=== PATIENT | female | born 2000 | race Caucasian/White ===

== ENCOUNTER 2018-02-14 16:01 | Emergency (ER) | payer SELFPAY | END 2018-02-14 18:46 | disposition left against medical advice (07) | LOC: M ED 16:01 | DX: R25.2 Cramp and spasm (principal); Z53.21 Procedure and treatment not carried out due to patient leaving prior to being seen by health care provider ==

== ENCOUNTER 2018-08-19 21:52 | Emergency (ER) | payer OTHER, SELFPAY ==
[2018-08-19 22:42] LABS: KETONE, URINE AUTO RFX NEGATIVE (NEGATIVE); LEUKOCYTE ESTERASE UR AUTO RFX NEGATIVE (NEGATIVE); MUCUS, URINE RFX SMALL (NEGATIVE); RBC, URINE AUTO RFX 2 /HPF (0-3); SPECIFIC GRAVITY UR AUTO RFX 1.023 (1.002-1.035); SQUAM EPITHELIAL CELL UR AURFX 2 /HPF (0-6); WBC, URINE AUTO RFX 4 /HPF (0-3)
[2018-08-19 23:02] LABS: NITRITE, URINE AUTO RFX POSITIVE (NEGATIVE)
[2018-08-19 23:22] LABS: BASO % 0.3 % (0.0-1.0); EOS # 0.1 10^3/uL (0.0-0.50); EOS % 0.8 % (0.0-3.0); HEMATOCRIT 35.5 % (36.0-47.0); HEMOGLOBIN 11.6 g/dl (12.0-15.5); IMMATURE GRANULOCYTE % 0.4 % (0-3.0); LYMPH # 2.1 10^3/uL (1.5-6.5); LYMPH % 26.3 % (24.0-44.0); MEAN CORPUSCULAR HEMOGLOBIN 27.6 pg (27.0-33.0); MEAN CORPUSCULAR HGB CONC 32.7 g/dl (32.0-36.5); MEAN CORPUSCULAR VOLUME 84.5 fl (80.0-96.0); MONO # 0.4 10^3/uL (0.0-0.8); MONO % 5.1 % (0.0-5.0); NEUTROPHILS # 5.4 10^3/uL (1.8-7.7); NEUTROPHILS % 67.1 % (36.0-66.0); PLATELET COUNT, AUTOMATED 251 10^3/uL (150-450); RED CELL DISTRIBUTION WIDTH 14.1 % (11.5-14.5)
[2018-08-19 23:38] LABS: ANION GAP 8 MEQ/L (8-16); BLOOD UREA NITROGEN 15 MG/DL (7-18); CARBON DIOXIDE LEVEL 23 MEQ/L (21-32); CHLORIDE LEVEL 113 MEQ/L (98-107); GLUCOSE, FASTING 85 MG/DL (70-100); POTASSIUM SERUM 4.2 MEQ/L (3.5-5.1); SODIUM LEVEL 144 MEQ/L (136-145)
[2018-08-19] MEDS: cefTRIAXone SOD 1 GM in D5W MINI-BAG PLUS 50 ML IV (23:49)
[2018-08-19] MEDS: NS 1,000 ML IV (23:49)
[2018-08-19] MEDS: ACETAMINOPHEN 325 MG TAB PO (23:50)
[2018-08-19 23:58] LABS: HCG, SERUM QUANTITATIVE 13651 MIU/ML
[2018-08-20] MEDS: diphenhydrAMINE 25 MG CAP PO (01:20)
== END 2018-08-20 01:37 | disposition home or self-care (01) ==
LOC: M ED 08-20 01:37
DX: O23.41 Unspecified infection of urinary tract in pregnancy, first trimester (principal); Z3A.01 Less than 8 weeks gestation of pregnancy
CPT/HCPCS: J0696

== ENCOUNTER 2018-09-26 10:09 | Inpatient (IN) | payer OTHER ==
[2018-09-26 11:38] LABS: HEMATOCRIT 36.3 % (36.0-47.0); HEMOGLOBIN 12.4 g/dl (12.0-15.5); MEAN CORPUSCULAR HEMOGLOBIN 27.5 pg (27.0-33.0); MEAN CORPUSCULAR HGB CONC 34.2 g/dl (32.0-36.5); MEAN CORPUSCULAR VOLUME 80.5 fl (80.0-96.0); PLATELET COUNT, AUTOMATED 224 10^3/uL (150-450); RED BLOOD COUNT 4.51 10^6/uL (4.00-5.40); WHITE BLOOD COUNT 6.9 10^3/uL (4.0-10.0)
[2018-09-26 11:55] LABS: AMPHETAMINES LEVEL URINE NEGATIVE (NEGATIVE); BARBITURATES URINE NEGATIVE (NEGATIVE); BENZODIAZEPINES URINE NEGATIVE (NEGATIVE); CANNABINOIDS URINE NEGATIVE (NEGATIVE); COCAINE METABOLITE URINE NEGATIVE (NEGATIVE); METHADONE URINE NEGATIVE (NEGATIVE); OPIATES URINE NEGATIVE (NEGATIVE); PHENCYCLIDINE URINE NEGATIVE (NEGATIVE)
[2018-09-26 12:15] LABS: ACETAMINOPHEN LEVEL < 2.0 UG/ML (10.0-30.0); ALBUMIN 3.5 GM/DL (3.2-5.2); ALBUMIN/GLOBULIN RATIO 1.09 (1.00-1.93); ALKALINE PHOSPHATASE 74 U/L (45-117); ALT/SGPT 11 U/L (12-78); ANION GAP 7 MEQ/L (8-16); AST/SGOT 11 U/L (7-37); BILIRUBIN,DIRECT < 0.1 MG/DL (0.0-0.2); BILIRUBIN,TOTAL 0.3 MG/DL (0.2-1.0); BLOOD UREA NITROGEN 7 MG/DL (7-18); CALCIUM LEVEL 8.9 MG/DL (8.5-10.1); CARBON DIOXIDE LEVEL 24 MEQ/L (21-32); CHLORIDE LEVEL 106 MEQ/L (98-107); ETHYL ALCOHOL (ETHANOL) < 0.003 % (0.000-0.010); GLUCOSE, FASTING 77 MG/DL (70-100); POTASSIUM SERUM 4.3 MEQ/L (3.5-5.1); SALICYLATE LEVEL < 1.7 MG/DL (5.0-30.0); SODIUM LEVEL 137 MEQ/L (136-145); TOTAL PROTEIN 6.7 GM/DL (6.4-8.2)
[2018-09-26 12:23] LABS: CONTROL LINE HCG INT CTR LINE PRESENT; HCG, SERUM QUALITATIVE POSITIVE (NEGATIVE)
[2018-09-26] MEDS ORDERED: MAALOX 30 ML SUSP *UDC PO (15:00)
[2018-09-26] MEDS ORDERED: MOM 30ML SUSPENSION UDC PO (15:00)
[2018-09-26] MEDS ORDERED: ACETAMINOPHEN TAB 650MG DOSE (2X325MG) PO (15:00)
[2018-09-27] MEDS: PRENATAL VITAMINS CHEWABLE TABLET PO (11:36)
[2018-09-27] MEDS: DOCUSATE SODIUM 100 MG CAP PO ×2 (11:36→21:46)
[2018-09-27] MEDS: ESCITALOPRAM OXALATE 10 MG TAB (LEXAPRO) PO (13:26)
[2018-09-27 14:40] LABS: KETONE, URINE AUTO RFX TRACE mg/dL (NEGATIVE); MUCUS, URINE RFX SMALL (NEGATIVE); NITRITE, URINE AUTO RFX NEGATIVE (NEGATIVE); RBC, URINE AUTO RFX 1 /HPF (0-3); SPECIFIC GRAVITY UR AUTO RFX 1.023 (1.002-1.035); SQUAM EPITHELIAL CELL UR AURFX 21 /HPF (0-6); WBC, URINE AUTO RFX 5 /HPF (0-3)
[2018-09-27 15:17] LABS: LEUKOCYTE ESTERASE UR AUTO RFX 2+ (NEGATIVE)
[2018-09-28] MEDS: DOCUSATE SODIUM 100 MG CAP PO ×2 (09:25→21:15)
[2018-09-28] MEDS: PRENATAL VITAMINS CHEWABLE TABLET PO (09:25)
[2018-09-28] MEDS: ESCITALOPRAM OXALATE 10 MG TAB (LEXAPRO) PO (09:25)
[2018-09-29] MEDS: PRENATAL VITAMINS CHEWABLE TABLET PO (08:43)
[2018-09-29] MEDS: DOCUSATE SODIUM 100 MG CAP PO ×2 (08:43→21:39)
[2018-09-29] MEDS: ESCITALOPRAM OXALATE 10 MG TAB (LEXAPRO) PO (08:43)
[2018-09-29] MEDS: NITROFURANTOIN (MACROBID) 100 MG CAP PO ×2 (09:32→21:39)
[2018-09-30] MEDS: PRENATAL VITAMINS CHEWABLE TABLET PO (13:58)
[2018-09-30] MEDS: NITROFURANTOIN (MACROBID) 100 MG CAP PO ×2 (13:58→22:42)
[2018-09-30] MEDS: DOCUSATE SODIUM 100 MG CAP PO ×2 (13:58→22:41)
[2018-09-30] MEDS: ESCITALOPRAM OXALATE 10 MG TAB (LEXAPRO) PO (13:58)
[2018-09-30] MEDS: METOCLOPRAMIDE 10 MG TAB PO (22:41)
[2018-10-01] MEDS: ESCITALOPRAM OXALATE 10 MG TAB (LEXAPRO) PO (09:58)
[2018-10-01] MEDS: DOCUSATE SODIUM 100 MG CAP PO ×2 (09:58→22:00)
[2018-10-01] MEDS: NITROFURANTOIN (MACROBID) 100 MG CAP PO ×2 (09:58→22:00)
[2018-10-01] MEDS: PRENATAL VITAMINS CHEWABLE TABLET PO (09:58)
[2018-10-02] MEDS: DOCUSATE SODIUM 100 MG CAP PO (09:19)
[2018-10-02] MEDS: ESCITALOPRAM OXALATE 10 MG TAB (LEXAPRO) PO (09:19)
[2018-10-02] MEDS: PRENATAL VITAMINS CHEWABLE TABLET PO (09:19)
[2018-10-02] MEDS: NITROFURANTOIN (MACROBID) 100 MG CAP PO (10:45)
== END 2018-10-02 13:15 | disposition home or self-care (01) | DRG 832 ==
LOC: M ED 10:09 → M ED INP 14:54 → M PSY 17:23
DX: O99.341 Other mental disorders complicating pregnancy, first trimester (principal); R45.851 Suicidal ideations; F33.9 Major depressive disorder, recurrent, unspecified; F43.10 Post-traumatic stress disorder, unspecified; Z59.8 Other problems related to housing and economic circumstances; Z62.810 Personal history of physical and sexual abuse in childhood; Z88.0 Allergy status to penicillin; Z88.8 Allergy status to other drugs, medicaments and biological substances; Z79.899 Other long term (current) drug therapy; K59.00 Constipation, unspecified; Z3A.11 11 weeks gestation of pregnancy

== ENCOUNTER 2018-10-10 17:01 | Emergency (ER) | payer OTHER ==
[2018-10-10] MEDS: NS 1,000 ML IV (17:30)
[2018-10-10 17:41] LABS: BASO % 0.2 % (0.0-1.0); EOS % 0.5 % (0.0-3.0); HEMATOCRIT 37.2 % (36.0-47.0); HEMOGLOBIN 12.7 g/dl (12.0-15.5); IMMATURE GRANULOCYTE % 0.4 % (0-3.0); LYMPH # 1.4 10^3/uL (1.5-6.5); LYMPH % 16.9 % (24.0-44.0); MEAN CORPUSCULAR HEMOGLOBIN 27.7 pg (27.0-33.0); MEAN CORPUSCULAR HGB CONC 34.1 g/dl (32.0-36.5); MEAN CORPUSCULAR VOLUME 81.2 fl (80.0-96.0); MONO # 0.3 10^3/uL (0.0-0.8); MONO % 4.1 % (0.0-5.0); NEUTROPHILS # 6.3 10^3/uL (1.8-7.7); NEUTROPHILS % 77.9 % (36.0-66.0); PLATELET COUNT, AUTOMATED 231 10^3/uL (150-450); RED BLOOD COUNT 4.58 10^6/uL (4.00-5.40); RED CELL DISTRIBUTION WIDTH 13.4 % (11.5-14.5); WHITE BLOOD COUNT 8.1 10^3/uL (4.0-10.0)
[2018-10-10 18:01] LABS: KETONE, URINE AUTO RFX NEGATIVE (NEGATIVE); MUCUS, URINE RFX SMALL (NEGATIVE); NITRITE, URINE AUTO RFX NEGATIVE (NEGATIVE); RBC, URINE AUTO RFX 2 /HPF (0-3); SPECIFIC GRAVITY UR AUTO RFX 1.026 (1.002-1.035); SQUAM EPITHELIAL CELL UR AURFX 5 /HPF (0-6); WBC, URINE AUTO RFX 10 /HPF (0-3)
[2018-10-10 18:02] LABS: LEUKOCYTE ESTERASE UR AUTO RFX 1+ (NEGATIVE)
[2018-10-10 18:42] LABS: ANION GAP 9 MEQ/L (8-16); BLOOD UREA NITROGEN 10 MG/DL (7-18); CALCIUM LEVEL 8.5 MG/DL (8.5-10.1); CARBON DIOXIDE LEVEL 22 MEQ/L (21-32); CHLORIDE LEVEL 105 MEQ/L (98-107); CREATININE FOR GFR 0.64 MG/DL (0.55-1.30); GLUCOSE, FASTING 86 MG/DL (70-100); POTASSIUM SERUM 4.3 MEQ/L (3.5-5.1); SODIUM LEVEL 136 MEQ/L (136-145)
[2018-10-10] MEDS: metroNIDAZOLE (FLAGYL) 500 MG TAB PO (19:36)
[2018-10-10 20:53] LABS: CHLAMYDIA DNA AMPLIFICATION POSITIVE (NEGATIVE); GC DNA AMPLIFICATION NEGATIVE (NEGATIVE)
[2018-10-11 11:12] LABS: HIV 1&2 SCREEN CENTAUR NEGATIVE (NEGATIVE)
== END 2018-10-10 19:41 | disposition home or self-care (01) ==
LOC: M ED 17:01
DX: O23.591 Infection of other part of genital tract in pregnancy, first trimester (principal); B96.20 Unspecified Escherichia coli [E. coli] as the cause of diseases classified elsewhere; O34.81 Maternal care for other abnormalities of pelvic organs, first trimester; Z87.440 Personal history of urinary (tract) infections; Z79.899 Other long term (current) drug therapy; Z88.0 Allergy status to penicillin; Z88.2 Allergy status to sulfonamides; Z88.7 Allergy status to serum and vaccine; Z3A.13 13 weeks gestation of pregnancy
CPT/HCPCS: 76801

== ENCOUNTER 2018-10-21 13:45 | Emergency (ER) | payer OTHER ==
[2018-10-21 14:15] LABS: AMORPHOUS SEDIMENT RFX LARGE (NEGATIVE); KETONE, URINE AUTO RFX NEGATIVE (NEGATIVE); MUCUS, URINE RFX SMALL (NEGATIVE); NITRITE, URINE AUTO RFX NEGATIVE (NEGATIVE); RBC, URINE AUTO RFX 4 /HPF (0-3); SPECIFIC GRAVITY UR AUTO RFX 1.021 (1.002-1.035); SQUAM EPITHELIAL CELL UR AURFX 5 /HPF (0-6)
[2018-10-21 14:16] LABS: LEUKOCYTE ESTERASE UR AUTO RFX 1+ (NEGATIVE); WBC, URINE AUTO RFX 26 /HPF (0-3)
[2018-10-21 16:24] LABS: CHLAMYDIA DNA AMPLIFICATION POSITIVE (NEGATIVE); GC DNA AMPLIFICATION NEGATIVE (NEGATIVE)
== END 2018-10-21 15:00 | disposition home or self-care (01) ==
LOC: M ED 13:45
DX: O23.42 Unspecified infection of urinary tract in pregnancy, second trimester (principal); O23.592 Infection of other part of genital tract in pregnancy, second trimester; O99.342 Other mental disorders complicating pregnancy, second trimester; Z3A.15 15 weeks gestation of pregnancy; Z79.899 Other long term (current) drug therapy; Z88.0 Allergy status to penicillin; Z88.7 Allergy status to serum and vaccine; Z88.1 Allergy status to other antibiotic agents
CPT/HCPCS: 81001

== ENCOUNTER 2018-11-10 18:25 | Emergency (ER) | payer OTHER ==
[~2018-11-10] VITALS: Ht 160 cm; Wt 59.1 kg
[2018-11-10 18:25] VITALS: BP 122/69
[~2018-11-10 18:25] MED LIST: CLOT1CRE19 PV; ESCI10TA2 PO; FLAG500T PO; IBUP-1022 PO; MACR100C43 PO; PREN1TAB14 PO
[2018-11-10] MEDS ORDERED: NORCO, ANEXSIA 5/325MG TABLET (HYDROcodone/ACETAMINOPHEN) PO ONE (20:45)
[2018-11-10 21:07] LABS: BASO % 0.4 % (0.0-1.0); EOS # 0.1 10^3/uL (0.0-0.50); EOS % 1.1 % (0.0-3.0); HEMATOCRIT 34.3 % (36.0-47.0); HEMOGLOBIN 11.7 g/dl (12.0-15.5); LYMPH # 1.8 10^3/uL (1.5-6.5); LYMPH % 22.6 % (24.0-44.0); MEAN CORPUSCULAR HEMOGLOBIN 28.1 pg (27.0-33.0); MEAN CORPUSCULAR HGB CONC 34.1 g/dl (32.0-36.5); MEAN CORPUSCULAR VOLUME 82.5 fl (80.0-96.0); MONO # 0.4 10^3/uL (0.0-0.8); MONO % 4.3 % (0.0-5.0); NEUTROPHILS # 5.8 10^3/uL (1.8-7.7); NEUTROPHILS % 71.2 % (36.0-66.0); PLATELET COUNT, AUTOMATED 212 10^3/uL (150-450); RED BLOOD COUNT 4.16 10^6/uL (4.00-5.40); WHITE BLOOD COUNT 8.1 10^3/uL (4.0-10.0)
[2018-11-10 21:29] LABS: ALBUMIN 3.2 GM/DL (3.2-5.2); ALT/SGPT 22 U/L (12-78); BILIRUBIN,DIRECT < 0.1 MG/DL (0.0-0.2); BILIRUBIN,TOTAL < 0.1 MG/DL (0.2-1.0); BLOOD UREA NITROGEN 11 MG/DL (7-18); CALCIUM LEVEL 8.7 MG/DL (8.5-10.1); CARBON DIOXIDE LEVEL 24 MEQ/L (21-32); CHLORIDE LEVEL 107 MEQ/L (98-107); CREATININE FOR GFR 0.64 MG/DL (0.55-1.30); GLUCOSE, FASTING 70 MG/DL (70-100); POTASSIUM SERUM 3.8 MEQ/L (3.5-5.1); SODIUM LEVEL 139 MEQ/L (136-145); TOTAL PROTEIN 6.4 GM/DL (6.4-8.2)
[2018-11-10 21:39] LABS: INFLUENZA A AMPLIFICATION NEGATIVE (NEGATIVE); INFLUENZA B AMPLIFICATION NEGATIVE (NEGATIVE)
== END 2018-11-10 23:02 | disposition home or self-care (01) ==
LOC: M ED 18:25
DX: O99.89 Other specified diseases and conditions complicating pregnancy, childbirth and the puerperium (principal); M25.511 Pain in right shoulder; R53.81 Other malaise; R53.83 Other fatigue; R19.4 Change in bowel habit; Z3A.17 17 weeks gestation of pregnancy; O99.342 Other mental disorders complicating pregnancy, second trimester; F33.9 Major depressive disorder, recurrent, unspecified; F41.9 Anxiety disorder, unspecified; Z88.0 Allergy status to penicillin; Z88.1 Allergy status to other antibiotic agents; O99.332 Smoking (tobacco) complicating pregnancy, second trimester; F17.210 Nicotine dependence, cigarettes, uncomplicated

== ENCOUNTER 2018-12-30 14:08 | Emergency (ER) | payer OTHER ==
[~2018-12-30] VITALS: Ht 160 cm; Wt 60.0 kg
[2018-12-30] MEDS ORDERED: METOCLOPRAMIDE INJ 10MG/2ML VIAL (J2765) IV ONE (15:15)
[2018-12-30] MEDS ORDERED: NS 1,000 ML IV ONE ×2 (15:15)
[2018-12-30 15:33] LABS: BASO % 0.2 % (0.0-1.0); EOS # 0.1 10^3/uL (0.0-0.50); EOS % 0.7 % (0.0-3.0); HEMATOCRIT 32.7 % (36.0-47.0); LYMPH # 1.1 10^3/uL (1.5-6.5); LYMPH % 12.6 % (24.0-44.0); MEAN CORPUSCULAR HEMOGLOBIN 28.4 pg (27.0-33.0); MEAN CORPUSCULAR HGB CONC 33.6 g/dl (32.0-36.5); MEAN CORPUSCULAR VOLUME 84.3 fl (80.0-96.0); MONO # 0.4 10^3/uL (0.0-0.8); MONO % 4.2 % (0.0-5.0); NEUTROPHILS # 7.3 10^3/uL (1.8-7.7); NEUTROPHILS % 81.8 % (36.0-66.0); PLATELET COUNT, AUTOMATED 175 10^3/uL (150-450); RED BLOOD COUNT 3.88 10^6/uL (4.00-5.40); WHITE BLOOD COUNT 8.9 10^3/uL (4.0-10.0)
[2018-12-30 15:55] LABS: ALBUMIN 3.3 GM/DL (3.2-5.2); ALT/SGPT 66 U/L (12-78); AMYLASE 95 U/L (25-115); BILIRUBIN,DIRECT < 0.1 MG/DL (0.0-0.2); BILIRUBIN,TOTAL 0.3 MG/DL (0.2-1.0); BLOOD UREA NITROGEN 9 MG/DL (7-18); CALCIUM LEVEL 8.1 MG/DL (8.5-10.1); CARBON DIOXIDE LEVEL 23 MEQ/L (21-32); CHLORIDE LEVEL 109 MEQ/L (98-107); GLUCOSE, FASTING 64 MG/DL (70-100); LIPASE 121 U/L (73-393); POTASSIUM SERUM 3.9 MEQ/L (3.5-5.1); SODIUM LEVEL 141 MEQ/L (136-145); TOTAL PROTEIN 6.3 GM/DL (6.4-8.2)
[2018-12-30 16:14] VITALS: BP 125/67
== END 2018-12-30 16:17 | disposition left against medical advice (07) ==
LOC: M ED 14:08
DX: R11.2 Nausea with vomiting, unspecified (principal); Z53.21 Procedure and treatment not carried out due to patient leaving prior to being seen by health care provider
CPT/HCPCS: 80048; 80076; 81001; 82150; 83690; 85025; 87086; 99284; J2765

== ENCOUNTER 2019-07-03 07:24 | Emergency (ER) | payer OTHER ==
[~2019-07-03] VITALS: Ht 160 cm; Wt 51.3 kg
[2019-07-03 08:37] LABS: HEMATOCRIT 40.3 % (36.0-47.0); MEAN CORPUSCULAR HGB CONC 32.3 g/dl (32.0-36.5); MEAN CORPUSCULAR VOLUME 83.8 fl (80.0-96.0); PLATELET COUNT, AUTOMATED 202 10^3/uL (150-450); RED BLOOD COUNT 4.81 10^6/uL (4.00-5.40); WHITE BLOOD COUNT 3.9 10^3/uL (4.0-10.0)
[2019-07-03] MEDS ORDERED: CYCLOBENZAPRINE 5MG TABLET PO ONE (08:45)
[2019-07-03] MEDS ORDERED: ACETAMINOPHEN 500 MG TAB PO ONE (08:45)
[2019-07-03] MEDS ORDERED: KETOROLAC 60 MG/2 ML VIAL (J1885) IM ONE (08:45)
[2019-07-03 09:02] LABS: ALT/SGPT 18 U/L (12-78); BILIRUBIN,DIRECT 0.1 MG/DL (0.0-0.2); BILIRUBIN,TOTAL 0.2 MG/DL (0.2-1.0); BLOOD UREA NITROGEN 15 MG/DL (7-18); CALCIUM LEVEL 9.1 MG/DL (8.5-10.1); CARBON DIOXIDE LEVEL 27 MEQ/L (21-32); CHLORIDE LEVEL 109 MEQ/L (98-107); CREATININE FOR GFR 0.83 MG/DL (0.55-1.30); GLUCOSE, FASTING 68 MG/DL (70-100); LIPASE 77 U/L (73-393); POTASSIUM SERUM 3.8 MEQ/L (3.5-5.1); SODIUM LEVEL 144 MEQ/L (136-145); TOTAL PROTEIN 6.8 GM/DL (6.4-8.2)
[2019-07-03 10:11] LABS: CHLAMYDIA DNA AMPLIFICATION NEGATIVE (NEGATIVE); GC DNA AMPLIFICATION NEGATIVE (NEGATIVE)
[2019-07-03] MEDS ORDERED: MACR100C43 PO (10:50)
[2019-07-03] MEDS ORDERED: FLAG500T PO (10:50)
[2019-07-03 10:57] VITALS: BP 112/69
--- NOTE | 2019-07-03 11:16 | REP ---
LUMBOSACRAL SPINE: Five views of the lumbosacral spine are performed. There is no compression fracture or malalignment. There is normal lumbar lordosis. Disc spaces are well preserved. Posterior elements are intact. IMPRESSION: Negative lumbosacral spine series. Electronically Signed by Niko Núñez MD 07/04/2019 09:33 A
== END 2019-07-03 11:00 | disposition home or self-care (01) ==
LOC: M ED 07:24
DX: N76.0 Acute vaginitis (principal); N39.0 Urinary tract infection, site not specified; M54.5 Low back pain; Z86.19 Personal history of other infectious and parasitic diseases; F53.0 Postpartum depression; F17.210 Nicotine dependence, cigarettes, uncomplicated; Z88.8 Allergy status to other drugs, medicaments and biological substances; Z88.1 Allergy status to other antibiotic agents; Z88.7 Allergy status to serum and vaccine; Z91.018 Allergy to other foods
CPT/HCPCS: 36415; 72110; 80048; 80076; 81001; 83690; 84702; 85027; 87088; 87186; 87210; 87661; 96372; 99283; J1885

== ENCOUNTER 2019-08-15 17:22 | Inpatient (IN) | payer OTHER ==
[~2019-08-15] VITALS: Ht 160 cm; Wt 55.6 kg
[2019-08-15] MEDS ORDERED: PROZ40CA PO ×2 (17:31→22:37)
[2019-08-15] MEDS ORDERED: CYCL5TAB PO ×2 (17:31→22:37)
[2019-08-15] MEDS ORDERED: IBUP1TAB7 PO ×2 (17:31→22:37)
[2019-08-15] MEDS ORDERED: AZIT-12 PO ×2 (17:31→22:37)
[2019-08-15] MEDS ORDERED: ZYPR2.5T2 PO (17:31)
[2019-08-15] MEDS ORDERED: CHOL100029 PO (17:31)
[2019-08-15 19:21] LABS: AMPHETAMINES LEVEL URINE NEGATIVE (NEGATIVE); BARBITURATES URINE NEGATIVE (NEGATIVE); BENZODIAZEPINES URINE POSITIVE (NEGATIVE); CANNABINOIDS URINE NEGATIVE (NEGATIVE); COCAINE METABOLITE URINE NEGATIVE (NEGATIVE); METHADONE URINE NEGATIVE (NEGATIVE); OPIATES URINE NEGATIVE (NEGATIVE); PHENCYCLIDINE URINE NEGATIVE (NEGATIVE)
[2019-08-15 19:30] LABS: HCG, SERUM QUALITATIVE NEGATIVE (NEGATIVE)
[2019-08-15 19:32] LABS: ACETAMINOPHEN LEVEL < 2.0 UG/ML (10.0-30.0); ALBUMIN 3.8 GM/DL (3.2-5.2); ALT/SGPT 23 U/L (12-78); BILIRUBIN,DIRECT < 0.1 MG/DL (0.0-0.2); BILIRUBIN,TOTAL 0.3 MG/DL (0.2-1.0); BLOOD UREA NITROGEN 13 MG/DL (7-18); CALCIUM LEVEL 8.8 MG/DL (8.5-10.1); CARBON DIOXIDE LEVEL 25 MEQ/L (21-32); CHLORIDE LEVEL 109 MEQ/L (98-107); CREATININE FOR GFR 0.87 MG/DL (0.55-1.30); ETHYL ALCOHOL (ETHANOL) 0.004 % (0.000-0.010); GLOMERULAR FILTRATION RATE > 60.0 (>60); GLUCOSE, FASTING 77 MG/DL (70-100); POTASSIUM SERUM 3.8 MEQ/L (3.5-5.1); SALICYLATE LEVEL 2.5 MG/DL (5.0-30.0); SODIUM LEVEL 142 MEQ/L (136-145); TOTAL PROTEIN 7.1 GM/DL (6.4-8.2)
[2019-08-15 20:58] LABS: HEMATOCRIT 37.8 % (36.0-47.0); HEMOGLOBIN 12.4 g/dl (12.0-15.5); MEAN CORPUSCULAR HEMOGLOBIN 27.7 pg (27.0-33.0); MEAN CORPUSCULAR HGB CONC 32.8 g/dl (32.0-36.5); MEAN CORPUSCULAR VOLUME 84.4 fl (80.0-96.0); PLATELET COUNT, AUTOMATED 256 10^3/uL (150-450); RED BLOOD COUNT 4.48 10^6/uL (4.00-5.40)
[2019-08-15] MEDS ORDERED: ACETAMINOPHEN TAB 650MG DOSE (2X325MG) PO PRN (22:00)
[2019-08-15] MEDS ORDERED: traZODone 50 MG TAB PO PRN (22:00)
[2019-08-15] MEDS ORDERED: OLANZapine 5 MG TAB PO PRN (22:00)
[2019-08-15] MEDS ORDERED: MAALOX 30 ML SUSP *UDC PO PRN (22:00)
[2019-08-15] MEDS ORDERED: MOM 30ML SUSPENSION UDC PO PRN (22:00)
[2019-08-15] MEDS ORDERED: ONDA4TAB6 PO (22:37)
[2019-08-15] MEDS ORDERED: NORG1TAB PO (22:37)
[2019-08-15] MEDS ORDERED: PREN27TA3 PO (22:37)
[2019-08-15] MEDS ORDERED: D31000TA PO (22:37)
[2019-08-15] MEDS ORDERED: OLAN5TAB PO (22:37)
[2019-08-16 02:15] VITALS: BP 124/76
[2019-08-16] MEDS ORDERED: CHLORASEPTIC SPRAY MT PRN (03:45)
[2019-08-16] MEDS ORDERED: IBUPROFEN 400 MG TAB PO PRN (03:45)
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
[2019-08-16] MEDS ORDERED: FLUoxetine 20 MG CAP PO ONE (11:00)
--- NOTE | 2019-08-16 12:18 | HPEPDOC ---
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 Patient on that she has had a sore throat and itchy ears and feeling unwell for several days she did present to the emergency room previously for this and was started on azithromycin a course for which she has not yet completed. She has had an ongoing. Since July 05 for which she's been seen by [facility] Abdoulaye regarding she's had significant testing and is awaiting results. Otherwise she's been taking ibuprofen [id number]. She was told by [facility] that she has a urinary tract infection although she denies having any symptoms that herself. Otherwise patient denies weight loss, hair loss, headache, visual changes, chest pain, shortness of breath, cough, nausea, vomiting, diarrhea, abdominal pain, muscle aches, worsening arthritis, change in mood PAST MEDICAL HISTORY: 1. Alcohol abuse. 2. Anxiety. 3. Depression 4. Muscle spasms 6. Menorrhagia HOME MEDICATIONS: Please see below. ALLERGIES: Please see below PAST SURGICAL HISTORY: 1. Tonsilloadenoidectomy. SOCIAL HISTORY: [place] Employment: Active duty , To bacco use: One to 2 cigarettes per day for 10 years. ETOH: Denies, Illicit drug use: Denies, CODE STATUS: Full code FAMILY HISTORY:Reviewed and noncontributory REVIEW OF SYSTEMS: 10 systems reviewed and negative other than HPI PHYSICAL EXAMINATION: VITAL SIGNS: Please see below GENERAL: Pleasant young -Nigerian female sitting up in bed awake alert oriented speaking in complete sentences no acute distress HEENT: Moist mucous membranes no elevation in CVP CARDIOVASCULAR: S1 S2 regular no additional heart sounds appreciated. RESPIRATORY: Clear to auscultation bilaterally. ABDOMINAL: Bowel sounds present abdomen soft and nontender no CVA tenderness no suprapubic tenderness EXTREMITIES: No clubbing cyanosis or edema NEUROLOGICAL: Spontaneously moves all 4 extremities cranial 2 through 12 grossly intact no gross focal deficits appreciated PSYCHOLOGICAL: Appropriate LABORATORY DATA: See below. MICROBIOLOGY: Please see below. IMAGING: None ASSESSMENT & PLAN: This is a 19-year-old female with homicidal ideation. PROBLEMS: 1. Homicidal ideation: Management as per psychiatry. 2. Bronchitis: She is recently started on azithromycin her symptoms persist I will continue her with this and provided with Cepacol throat lozenges as well. I will check a respiratory PCR panel and 3. Possible urinary tract infection: We will check a UA reflex urine culture will hold off on any additional antibiotics at this time 4. Abnormal uterine bleeding: Etiology is unclear she is undergoing outpatient evaluation for this will defer to her outpatient [facility] [place]. We'll restart her home ibuprofen which helps with her crampy pain 5. Muscle spasms: We'll resume her home cyclobenzaprine. DVT PROPHYLAXIS: Ambulating Thank you for this interesting consult, we will continue to follow along with you. Please Vocera secure text or call with any specific questions. Vital Signs Vital Signs Date Time Temp Pulse Resp B/P (MAP) Pulse Ox O2 Delivery O2 Flow Rate FiO2 08/16/19 02:15 97.5 63 16 124/76 (92) 100 08/16/19 02:06 Room Air Laboratory Data Labs 24H Laboratory Tests 2 08/15/19 18:41: Nucleated Red Blood Cells % (auto) 0.0, Anion Gap 8, Glomerular Filtration Rate > 60.0, Calcium Level 8.8, Aspartate Amino Transf (AST/SGOT) 14, Alanine Chester otransferase (ALT/SGPT) 23, Alkaline Phosphatase 100, Total Bilirubin 0.3, Direct Bilirubin < 0.1, Total Protein 7.1, Albumin 3.8, Albumin/Globulin Ratio 1.15, Thyroid Stimulating Hormone (TSH) 1.160, Human Chorionic Gonadotropin, Qual NEGATIVE, Salicylates Level 2.5L, Acetaminophen Level < 2.0L, Ethyl Alcohol Level 0.004 08/15/19 18:49: Urine Amphetamines Screen NEGATIVE, Urine Benzodiazepines Screen POSITIVEH, Urine Opiates Screen NEGATIVE, Urine Methadone Screen NEGATIVE, Urine Barbiturates Screen NEGATIVE, Urine Phencyclidine Screen NEGATIVE, Urine Cocaine Metabolite Screen NEGATIVE, Urine Cannabinoids Screen NEGATIVE CBC/BMP Laboratory Tests 08/15/19 18:41 Red Blood Count 4.48, Mean Corpuscular Volume 84.4, Mean Corpuscular Hemoglobin 27.7, Mean Corpuscular Hemoglobin Concent 32.8, Red Cell Distribution Width 14.4 Home Medications Scheduled Azithromycin (Azithromycin) 250 Mg Tablet, 250 MG PO ASDIRECTED LAST DOSE WAS DAY 1 Cholecalciferol (Vitamin D3) (Vitamin D3) 1,000 Unit Tablet, 1,000 UNIT PO QHS Fluoxetine HCl (Prozac) 40 Mg Capsule, 40 MG PO DAILY Norgestimate-Ethinyl Estradiol (Norg-Ee 0.18-0.215-0.25/0.025) 1 Each Tablet, 1 TAB PO DAILY Olanzapine (Olanzapine) 5 Mg Tablet, 10 MG PO QHS Pnv,Calcium 72/Iron/Folic Acid ( Vitamin Plus Low Iron) 1 Each Tablet, 1 TAB PO QHS Scheduled PRN Cyclobenzaprine HCl (Cyclobenzaprine HCl) 5 Mg Tablet, 5 MG PO TID PRN for MUSCLE SPASMS Ibuprofen (Ibuprofen) 800 Mg Tablet, 800 MG PO TID PRN for PAIN Ondansetron (Ondansetron Odt) 4 Mg Tab.rapdis, 4 MG PO Q6H PRN for NAUSEA Allergies Coded Allergies: amoxicillin (Verified Allergy, Intermediate, ITCHING, SWELLING, 07/03/19) anthrax vaccine (Verified Allergy, Intermediate, HIVES, 07/03/19) ceftriaxone (Verified Allergy, Intermediate, PERIORBITAL SWELLING, 07/03/19) citric acid (Verified Allergy, Intermediate, itch, 07/03/19) tomato (Verified Allergy, Intermediate, itch, 07/03/19) A-FIB/CHADSVASC A-FIB History Current/History of A-Fib/PAF?: LOR Hammonds MD Aug 16, 2019 12:18
[2019-08-16] MEDS ORDERED: CYCLOBENZAPRINE 5MG TABLET PO PRN (12:30)
[2019-08-16] MEDS: AZITHROMYCIN 250 MG TAB PO SCH (14:55)
[2019-08-16 18:00] VITALS: BP 139/83
[2019-08-16] MEDS: OLANZapine 5 MG TAB PO SCH (21:00)
[2019-08-16] MEDS: PRENATAL VITAMINS CHEWABLE TABLET PO SCH (21:00)
[2019-08-16] MEDS: VITAMIN D 1,000 INTERNATIONAL UNITS TABLET PO SCH (21:01)
[2019-08-17 06:30] VITALS: BP 101/57
--- NOTE | 2019-08-17 08:37 | MHIPNPDOC ---
[facility] Progress Note Progress Note DATE OF SERVICE: 08/17/19 HISTORY: Patient is a 19 -year-old , female, who states that she threatened to blow up my company. She said it to her CPT, 1SG, and tanvir SGT. Patient states that going to work is a trigger for her. She states that her MACKENZIE is always telling her that she is doing something wrong. She got a counseling statement today and she states that she feels like her MACKENZIE thinks she is just a number. Patient denies feeling homicidal at this time and also denies SI. She does admit to depressed mood, excessive crying, anxiety, decreased energy, poor sleep, and poor appetite. She states that her mood is either high or low and there is no in between. Patient has had prior suicide attempts via cutting. She has a history of MDD, PTSD, and post- depression. Patient gave to a daughter five months ago and her daughter is in [place] with patients mother because patient was unable to find reliable childcare. Patient has had two prior admissions. She has OP tx at [facility] but does not see a therapist. Patient denies substance use but her tox screen was positive for benzos. Patient has poor impulse control and poor judgement and insight. Patient presents because she was having homicidal ideations toward her entire company for the past few days. She reports she does not get along with anyone and has even requested a transfer to a different company. She states she had an issue with her staff sergeant and his who is a social staff worker and said they tried to call CPS to take her daughter away which is why she had her daughter removed to stay in [place]. She states she feels better today and denies SI, HI, AVH. She was just angry at the time and frustrated. She states she just hit her breaking point which is why she felt that way. Patient is on zyprexa for possible bipolar depression and prozac for her depression. She feels like the zyprexa was doing fine until her dosage was decreased and she had more problems sleeping and her appetite decreased again w/o use of less so increased outpatient back to original dose and symptoms improved. She was previously have eating and drinking problems, when diagnosed with PPD that continued and ultimately diagnosed with depression. She admits that her mood sometimes can change "at the drop of a hat", and she endorses mood and situation symptoms similar to borderline personality d/o rather than bipolar depression. Will increase prozac for her mood from 40 to 60 mg as she felt it was beneficial in the past but now not so much. Should aid in improvement of pt's anxiety causing her depressed mood and she agrees to increase. We will continue the zyprexa at the current dosage. She's been going to [facility] to discuss her stressors although reports from her initial intake state she may not be attending any of these meetings. VITAL SIGNS: See below. NEW TEST RESULTS: See below. CURRENT MEDICATIONS: See below. MENTAL STATUS EXAMINATION: General Appearance: well groomed, appears stated age, hospital scrubs/clothing Build: thin Demeanor: withdrawn, less guarded Eye Contact: fair Activity: average Behavior: cooperative, withdrawn Speech: slow, low in volume, non-spontaneous Mood: depressed Mood "ok" Affect: constricted, flat, congruent Thought Process: logical/linear, depressed, intact Thought Content (Delusions): none reported, denies SI, HI, AVH Thought Content (Other): none reported, appropriate Thought Content (Aggressive): none reported Perception (Hallucinations): none reported Perception (Other): none reported Cognition (Impairment of): none reported Cognition(Intelligence Est.): average Oriented: Awake, Alert, Oriented times three Insight: poor Judgment: Poor Psychosis: Denies DIAGNOSES: Major Depression D/O recurrent, severe w/o psychosis r/o borderline personality d/o ASSESSMENT:Pt seen and states that her mood is "a little better." States she's having some diarrhea this morning, possibly related to increase in prozac and encouraged to take it with food to improve diarrhea. Otherwise states she's tolerating increase well and finding it beneficial. States her anger and mood are improved with increase. States zyprexa is aiding her to sleep well and is tolerating it well. States she's being social on the milieu which is beneficial. Feels she is tolerating her medications and they're beneficial. She is attending groups and finding them helpful. She denies SI/HI, hallucinations, delusions. Pt feels safe here. MANAGEMENT PLAN: continue plan Medications: prozac 60mg daily zyprexa TIME SPENT: 30 minutes. Vital Signs Vital Signs Date Time Temp Pulse Resp B/P (MAP) Pulse Ox O2 Delivery O2 Flow Rate FiO2 08/17/19 06:30 97.8 54 14 101/57 (72) 08/16/19 02:15 100 08/16/19 02:06 Room Air Laboratory Data 24H Labs Laboratory Tests 2 08/16/19 19:50: Urine Color YELLOW, Urine Appearance HAZY, Urine pH 5.0, Urine Specific Liguori 1.024, Urine Protein 1+H, Urine Glucose (UA) NEGATIVE, Urine Ketones NEGATIVE, Urine Blood 3+H, Urine Nitrite NEGATIVE, Urine Bilirubin NEGATIVE, Urine Urobilinogen 0.2, Urine Leukocyte Esterase TRACEH, Urine WBC (Auto) 20H, Urine RBC (Auto) 139H, Urine Hyaline Casts (Auto) 0, Urine Bacteria (Auto) 1+H, Urine Squamous Epithelial Cells 8, Urine Mucus (Auto) SMALL, Urine Sperm (Auto) Current Medications Current Medications Medications (Trade) Dose Ordered Sig/Teto Route PRN Reason Start Time Stop Time Status Last Admin Dose Admin Acetaminophen (Tylenol Tab) 650 mg Q6HP PRN PO HEADACHE or DISCOMFORT 08/15/19 22:00 Al Hydrox/Mg Hydrox/Simethicone (Mylanta) 30 ml Q4HP PRN PO HEARTBURN/INDIGESTION 08/15/19 22:00 Azithromycin (Zithromax Tab) 250 mg DAILY PO 08/16/19 14:00 08/20/19 09:01 08/16/19 14:55 Cyclobenzaprine HCl (Flexeril) 5 mg TID PRN PO MUSCLE SPASMS 08/16/19 12:30 Fluoxetine HCl (PROzac) 60 mg DAILY PO 08/17/19 09:00 Home Med (Med Rec Complete!) ASDIRECTED XX 08/15/19 22:45 08/15/19 22:40 DC Ibuprofen (Advil) 400 mg Q6HP PRN PO PAIN 08/16/19 03:45 Magnesium Hydroxide (Milk Of Magnesia) 30 ml DAILYPRN PRN PO CONSTIPATION 08/15/19 22:00 Olanzapine (ZyPREXA) 5 mg Q4HP PRN PO AGITATION 08/15/19 22:00 Olanzapine (ZyPREXA) 10 mg QHS PO 08/16/19 21:00 08/16/19 21:00 Phenol (Chloraseptic Amity) 2 spray Q4HP PRN MT SORE THROAT 08/16/19 03:45 Prenat Multivit/ Ward/Iron/Folic Ac ( Vitamins) 1 tab QHS PO 08/16/19 21:00 08/16/19 21:00 Trazodone HCl (Desyrel) 50 mg QHSP PRN PO INSOMNIA 08/15/19 22:00 Vitamin D (Vitamin D) 1,000 units QHS PO 08/16/19 21:00 08/16/19 21:01 Allergies Coded Allergies: amoxicillin (Verified Allergy, Intermediate, ITCHING, SWELLING, 07/03/19) anthrax vaccine (Verified Allergy, Intermediate, HIVES, 07/03/19) ceftriaxone (Verified Allergy, Intermediate, PERIORBITAL SWELLING, 07/03) citric acid (Verified Allergy, Intermediate, itch, 07/03/19) tomato (Verified Allergy, Intermediate, itch, 07/03/19) ERICH RIVAS DO Aug 17, 2019 8:37 am
[2019-08-17] MEDS: AZITHROMYCIN 250 MG TAB PO SCH (09:48)
[2019-08-17] MEDS: FLUoxetine 20 MG CAP PO SCH (09:49)
[2019-08-17 15:41] VITALS: BP 128/74
[2019-08-17] MEDS: VITAMIN D 1,000 INTERNATIONAL UNITS TABLET PO SCH (21:52)
[2019-08-17] MEDS: OLANZapine 5 MG TAB PO SCH (21:52)
[2019-08-17] MEDS: PRENATAL VITAMINS CHEWABLE TABLET PO SCH (21:52)
[2019-08-18 06:57] VITALS: BP 113/59
[2019-08-18] MEDS: FLUoxetine 20 MG CAP PO SCH (09:49)
[2019-08-18 16:06] VITALS: BP 114/60
[2019-08-18] MEDS: CIPROFLOXACIN 500 MG TAB PO SCH (17:04)
--- NOTE | 2019-08-18 18:03 | MHIPNPDOC ---
[facility] Progress Note Progress Note DATE OF SERVICE: 08/18/19 HISTORY: As per Dr. Bear" Patient is a 19 -year-old , female, who states that she threatened to blow up my company. She said it to her CPT, 1SG, and tanvir SGT. Patient states that going to work is a trigger for her. She states that her MACKENZIE is always telling her that she is doing something wrong. She got a counseling statement today and she states that she feels like her MACKENZIE thinks she is just a number. Patient denies feeling homicidal at this time and also denies SI. She does admit to depressed mood, excessive crying, anxiety, decreased energy, poor sleep, and poor appetite. She states that her mood is either high or low and there is no in between. Patient has had prior suicide attempts via cutting. She has a history of MDD, PTSD, and post- depres beny. Patient gave to a daughter five months ago and her daughter is in [place] with patients mother because patient was unable to find reliable childcare. Patient has had two prior admissions. She has OP tx at [facility] but does not see a therapist. Patient denies substance use but her tox screen was positive for benzos. Patient has poor impulse control and poor judgement and insight. Patient presents because she was having homicidal ideations toward her entire company for the past few days. She reports she does not get along with anyone and has even requested a transfer to a different company. She states she had an issue with her staff and his who is a older adult social work specialist and said they tried to call CPS to take her daughter away which is why she had her daughter removed to stay in [place]. She states she feels better today and denies SI, HI, AVH. She was just angry at the time and frustrated. She states she just hit her breaking point which is why she felt that way. Patient is on zyprexa for possible bipolar depression and prozac for her depression. She feels like the zyprexa was doing fine until her dosage was decreased and she had more problems sleeping and her appetite decreased again w/o use of less so increased outpat ient back to original dose and symptoms improved. She was previously have eating and drinking problems, when diagnosed with PPD that continued and ultimately diagnosed with depression. She admits that her mood sometimes can change "at the drop of a hat", and she endorses mood and situation symptoms similar to borderline personality d/o rather than bipolar depression. Will increase prozac for her mood from 40 to 60 mg as she felt it was beneficial in the past but now not so much. Should aid in improvement of pt's anxiety causing her depressed mood and she agrees to increase. We will continue the zyprexa at the current dosage. She's been going to [facility] to discuss her stressors although reports from her initial intake state she may not be attending any of these meetings." VITAL SIGNS: See below. NEW TEST RESULTS: See below. CURRENT MEDICATIONS: See below. MENTAL STATUS EXAMINATION: General Appearance: well groomed, appears stated age, hospital scrubs/clothing Build: thin Demeanor: pleasant, cooperative Eye Contact: fair Activity: average Behavior: cooperative, calm Speech: slow, low in volume, non-spontaneous Mood: pretty good Mood "It was pretty good because the sun was shining out there" Affect: a liitle constricted, she smiles at times, is reactive Thought Process: logical/linear, depressed, intact Thought Content (Delusions): none reported, denies SI, HI, AVH Thought Content (Other): none reported, appropriate Thought Content (Aggressive): none reported Perception (Hallucinations): none reported Perception (Other): none reported Cognition (Impairment of): none reported Cognition(Intelligence Est.): average Oriented: Awake, Alert, Oriented times three Insight: poor Judgment: Limited Psychosis: Denies DIAGNOSES: Major Depression D/O recurrent, severe w/o psychosis r/o borderline personality d/o ASSESSMENT: Patient says she went to group and they group little gratitude notes, this made her feel better. talked about paying attention to the beautiful things in life, like the sunset, the [place], the trees, the birds to remember there's always something good and beautiful out there than can bring light to her world. Tlked about copint with her job during the time she still has left to finish her contract at . Talked about seasonal affective disorder, because she gets worse during the winter and recommended to research about light therapy. MANAGEMENT PLAN: As per Dr. Bear TIME SPENT: 20 minutes. Vital Signs Vital Signs Date Time Temp Pulse Resp B/P (MAP) Pulse Ox O2 Delivery O2 Flow Rate FiO2 08/18/19 06:57 98.9 57 16 113/59 (77) 08/16/19 02:15 100 08/16/19 02:06 Room Air Current Medications Current Medications Medications (Trade) Dose Ordered Sig/Teto Route PRN Reason Start Time Stop Time Status Last Admin Dose Admin Acetaminophen (Tylenol Tab) 650 mg Q6HP PRN PO HEADACHE or DISCOMFORT 08/15/19 22:00 Al Hydrox/Mg Hydrox/Simethicone (Mylanta) 30 ml Q4HP PRN PO HEARTBURN/INDIGESTION 08/15/19 22:00 Azithromycin (Zithromax Tab) 250 mg DAILY PO 08/16/19 14:00 08/17/19 10:15 DC 08/17/19 09:48 Ciprofloxacin (Cipro) 500 mg BID@,18 PO 08/18/19 18:00 08/21/19 06:01 Cyclobenzaprine HCl (Flexeril) 5 mg TID PRN PO MUSCLE SPASMS 08/16/19 12:30 Fluoxetine HCl (PROzac) 60 mg DAILY PO 08/17/19 09:00 08/18/19 09:49 Home Med (Med Rec Complete!) ASDIRECTED XX 08/15/19 22:45 08/15/19 22:40 DC Ibuprofen (Advil) 400 mg Q6HP PRN PO PAIN 08/16/19 03:45 Magnesium Hydroxide (Milk Of Magnesia) 30 ml DAILYPRN PRN PO CONSTIPATION 08/15/19 22:00 Olanzapine (ZyPREXA) 5 mg Q4HP PRN PO AGITATION 08/15/19 22:00 Olanzapine (ZyPREXA) 10 mg QHS PO 08/16/19 21:00 08/17/19 21:52 Phenol (Chloraseptic [place]) 2 spray Q4HP PRN MT SORE THROAT 08/16/19 03:45 Prenat Multivit/ [place]/Iron/Folic Ac ( Vitamins) 1 tab QHS PO 08/16/19 21:00 08/17/19 21:52 Trazodone HCl (Desyrel) 50 mg QHSP PRN PO INSOMNIA 08/15/19 22:00 Vitamin D (Vitamin D) 1,000 units QHS PO 08/16/19 21:00 08/17/19 21:52 Allergies Coded Allergies: amoxicillin (Verified Allergy, Intermediate, ITCHING, SWELLING, 07/03/19) anthrax vaccine (Verified Allergy, Intermediate, HIVES, 07/03/19) ceftriaxone (Verified Allergy, Intermediate, PERIORBITAL SWELLING, 07/03/19) citric acid (Verified Allergy, Intermediate, itch, 07/03/19) tomato (Verified Allergy, Intermediate, itch, 07/03/19) SCARLETT AGUILAR MD Aug 18, 2019 13:59
[2019-08-18] MEDS: VITAMIN D 1,000 INTERNATIONAL UNITS TABLET PO SCH (21:59)
[2019-08-18] MEDS: OLANZapine 5 MG TAB PO SCH (21:59)
[2019-08-18] MEDS: PRENATAL VITAMINS CHEWABLE TABLET PO SCH (21:59)
[2019-08-19] MEDS: CIPROFLOXACIN 500 MG TAB PO SCH ×2 (06:02→17:10)
[2019-08-19 06:43] VITALS: BP 124/60
[2019-08-19] MEDS: FLUoxetine 20 MG CAP PO SCH (09:08)
--- NOTE | 2019-08-19 13:41 | MHIPNPDOC ---
[facility] Progress Note Progress Note DATE OF SERVICE: 08/19/19 HISTORY: As per Dr. Bear" Patient is a 19 -year-old , female, who states that she threatened to blow up my company. She said it to her CPT, 1SG, and tanvir SGT. Patient states that going to work is a trigger for her. She states that her MACKENZIE is always telling her that she is doing something wrong. She got a counseling statement today and she states that she feels like her MACKENZIE thinks she is just a number. Patient denies feeling homicidal at this time and also denies SI. She does admit to depressed mood, excessive crying, anxiety, decreased energy, poor sleep, and poor appetite. She states that her mood is either high or low and there is no in between. Patient has had prior suicide attempts via cutting. She has a history of MDD, PTSD, and post- depres beny. Patient gave to a daughter five months ago and her daughter is in [place] with patients mother because patient was unable to find reliable childcare. Patient has had two prior admissions. She has OP tx at [facility] but does not see a therapist. Patient denies substance use but her tox screen was positive for benzos. Patient has poor impulse control and poor judgement and insight. Patient presents because she was having homicidal ideations toward her entire company for the past few days. She reports she does not get along with anyone and has even requested a transfer to a different company. She states she had an issue with her staff and his who is a delinquency prevention social worker and said they tried to call CPS to take her daughter away which is why she had her daughter removed to stay in [place]. She states she feels better today and denies SI, HI, AVH. She was just angry at the time and frustrated. She states she just hit her breaking point which is why she felt that way. Patient is on zyprexa for possible bipolar depression and prozac for her depression. She feels like the zyprexa was doing fine until her dosage was decreased and she had more problems sleeping and her appetite decreased again w/o use of less so increased outpat ient back to original dose and symptoms improved. She was previously have eating and drinking problems, when diagnosed with PPD that continued and ultimately diagnosed with depression. She admits that her mood sometimes can change "at the drop of a hat", and she endorses mood and situation symptoms similar to borderline personality d/o rather than bipolar depression. Will increase prozac for her mood from 40 to 60 mg as she felt it was beneficial in the past but now not so much. Should aid in improvement of pt's anxiety causing her depressed mood and she agrees to increase. We will continue the zyprexa at the current dosage. She's been going to to discuss her stressors although reports from her initial intake state she may not be attending any of these meetings." VITAL SIGNS: See below. NEW TEST RESULTS: See below. CURRENT MEDICATIONS: See below. MENTAL STATUS EXAMINATION: General Appearance: well groomed, appears stated age, hospital scrubs/clothing Build: thin Demeanor: pleasant, cooperative Eye Contact: fair Activity: average Behavior: cooperative, calm Speech: slow, low in volume, spontaneous and fluent Mood: pretty good Mood "I feel pretty good today" Affect: a little constricted, she smiles at times, is reactive Thought Process: logical/linear, depressed, intact Thought Content (Delusions): none reported, denies SI, HI, AVH Thought Content (Other): none reported, appropriate Thought Content (Aggressive): none reported Perception (Hallucinations): none reported Perception (Other): none reported Cognition (Impairment of): none reported Cognition(Intelligence Est.): average Oriented: Awake, Alert, Oriented times three Insight: improving Judgment: improving Psychosis: Denies DIAGNOSES: Major Depression D/O recurrent, severe w/o psychosis r/o borderline personality d/o ASSESSMENT: Patient says she was very stressed out, one of her higher ups was cursing a lot, someone else said the f word and that contributed to her explosive episode. SHE SAYS SHE FEELS MUCH BETTER TODAY, she says everything was related to her work at . Mood and affect have improved. MANAGEMENT PLAN: As per Dr. Bear TIME SPENT: 20 minutes. Vital Signs Vital Signs Date Time Temp Pulse Resp B/P (MAP) Pulse Ox O2 Delivery O2 Flow Rate FiO2 08/19/19 06:43 96.3 71 12 124/60 (81) 08/16/19 02:15 100 08/16/19 02:06 Room Air Current Medications Current Medications Medications (Trade) Dose Ordered Sig/Teto Route PRN Reason Start Time Stop Time Status Last Admin Dose Admin Acetaminophen (Tylenol Tab) 650 mg Q6HP PRN PO HEADACHE or DISCOMFORT 08/15/19 22:00 Al Hydrox/Mg Hydrox/Simethicone (Mylanta) 30 ml Q4HP PRN PO HEARTBURN/INDIGESTION 08/15/19 22:00 Azithromycin (Zithromax Tab) 250 mg DAILY PO 08/16/19 14:00 08/17/19 10:15 DC 08/17/19 09:48 Ciprofloxacin (Cipro) 500 mg BID@,18 PO 08/18/19 18:00 08/21/19 06:01 08/19/19 06:02 Cyclobenzaprine HCl (Flexeril) 5 mg TID PRN PO MUSCLE SPASMS 08/16/19 12:30 Fluoxetine HCl (PROzac) 60 mg DAILY PO 08/17/19 09:00 08/19/19 09:08 Home Med (Med Rec Complete!) ASDIRECTED XX 08/15/19 22:45 08/15/19 22:40 DC Ibuprofen (Advil) 400 mg Q6HP PRN PO PAIN 08/16/19 03:45 Magnesium Hydroxide (Milk Of Magnesia) 30 ml DAILYPRN PRN PO CONSTIPATION 08/15/19 22:00 Olanzapine (ZyPREXA) 5 mg Q4HP PRN PO AGITATION 08/15/19 22:00 Olanzapine (ZyPREXA) 10 mg QHS PO 08/16/19 21:00 08/18/19 21:59 Phenol (Chloraseptic [place]) 2 spray Q4HP PRN MT SORE THROAT 08/16/19 03:45 Prenat Multivit/ [place]/Iron/Folic Ac ( Vitamins) 1 tab QHS PO 08/16/19 21:00 08/18/19 21:59 Trazodone HCl (Desyrel) 50 mg QHSP PRN PO INSOMNIA 08/15/19 22:00 Vitamin D (Vitamin D) 1,000 units QHS PO 08/16/19 21:00 08/18/19 21:59 Allergies Coded Allergies: amoxicillin (Verified Allergy, Intermediate, ITCHING, SWELLING, 07/03/19) anthrax vaccine (Verified Allergy, Intermediate, HIVES, 07/03/19) ceftriaxone (Verified Allergy, Intermediate, PERIORBITAL SWELLING, 07/03/19) citric acid (Verified Allergy, Intermediate, itch, 07/03/19) tomato (Verified Allergy, Intermediate, itch, 07/03/19) SCARLETT AGUILAR MD Aug 19, 2019 13:41
[2019-08-19 16:06] VITALS: BP 121/79
[2019-08-19] MEDS: VITAMIN D 1,000 INTERNATIONAL UNITS TABLET PO SCH (22:01)
[2019-08-19] MEDS: PRENATAL VITAMINS CHEWABLE TABLET PO SCH (22:01)
[2019-08-19] MEDS: OLANZapine 5 MG TAB PO SCH (22:02)
[2019-08-20] MEDS: CIPROFLOXACIN 500 MG TAB PO SCH ×2 (05:43→17:38)
[2019-08-20 06:30] VITALS: BP 98/60
[2019-08-20] MEDS: FLUoxetine 20 MG CAP PO SCH (09:28)
--- NOTE | 2019-08-20 10:06 | MHIPNPDOC ---
[facility] Progress Note Progress Note DATE OF SERVICE: 08/20/19 HISTORY: Patient is a 19 -year-old , female, who states that she threatened to blow up my company. She said it to her CPT, 1SG, and tanvir SGT. Patient states that going to work is a trigger for her. She states that her MACKENZIE is always telling her that she is doing something wrong. She got a counseling statement today and she states that she feels like her MACKENZIE thinks she is just a number. Patient denies feeling homicidal at this time and also denies SI. She does admit to depressed mood, excessive crying, anxiety, decreased energy, poor sleep, and poor appetite. She states that her mood is either high or low and there is no in between. Patient has had prior suicide attempts via cutting. She has a history of MDD, PTSD, and post- depression. Patient gave to a daughter five months ago and her daughter is in [place] with patients mother because patient was unable to find reliable childcare. Patient has had two prior admissions. She has OP tx at [facility] but does not see a therapist. Patient denies substance use but her tox screen was positive for benzos. Patient has poor impulse control and poor judgement and insight. Patient presents because she was having homicidal ideations toward her entire company for the past few days. She reports she does not get along with anyone and has even requested a transfer to a different company. She states she had an issue with her staff sergeant and his who is a clinical social worker and said they tried to call CPS to take her daughter away which is why she had her daughter removed to stay in [place]. She states she feels better today and denies SI, HI, AVH. She was just angry at the time and frustrated. She states she just hit her breaking point which is why she felt that way. Patient is on zyprexa for possible bipolar depression and prozac for her depression. She feels like the zyprexa was doing fine until her dosage was decreased and she had more problems sleeping and her appetite decreased again w/o use of less so increased outpatient back to original dose and symptoms improved. She was previously have eating and drinking problems, when diagnosed with PPD that continued and ultimately diagnosed with depression. She admits that her mood sometimes can change "at the drop of a hat", and she endorses mood and situation symptoms similar to borderline personality d/o rather than bipolar depression. Will increase prozac for her mood from 40 to 60 mg as she felt it was beneficial in the past but now not so much. Should aid in improvement of pt's anxiety causing her depressed mood and she agrees to increase. We will continue the zyprexa at the current dosage. She's been going to [facility] to discuss her stressors although reports from her initial intake state she may not be attending any of these meetings. VITAL SIGNS: See below. NEW TEST RESULTS: See below. CURRENT MEDICATIONS: See below. MENTAL STATUS EXAMINATION: General Appearance: well groomed, appears stated age, hospital scrubs/clothing Build: thin Demeanor: withdrawn, less guarded Eye Contact: fair Activity: average Behavior: cooperative, withdrawn Speech: slow, low in volume, non-spontaneous Mood: euthymic, congruent Mood "feeling better" Affect: constricted, flat, congruent Thought Process: logical/linear, depressed, intact Thought Content (Delusions): none reported, denies SI, HI, AVH Thought Content (Other): none reported, appropriate Thought Content (Aggressive): none reported Perception (Hallucinations): none reported Perception (Other): none reported Cognition (Impairment of): none reported Cognition(Intelligence Est.): average Oriented: Awake, Alert, Oriented times three Insight: improving Judgment: improving Psychosis: Denies DIAGNOSES: Major Depression D/O recurrent, severe w/o psychosis r/o borderline personality d/o ASSESSMENT:Patient seen and states she is feeling better, she is participating in groups and is enjoying it. She is able to joke about not being that great at art. She feels like she is tolerating her medications well and that they are helping. She has been working through her anger with the by trying to have a different attitude and utilize her coping skills more. She is sleeping well. She denies SI, HI, AVH. Patient feels safe here. MANAGEMENT PLAN: Anticipate DC tomorrow. Medications: prozac 60mg daily zyprexa TIME SPENT: 30 minutes. Vital Signs Vital Signs Date Time Temp Pulse Resp B/P (MAP) Pulse Ox O2 Delivery O2 Flow Rate FiO2 08/20/19 06:30 98.9 61 12 98/60 (73) 08/16/19 02:15 100 08/16/19 02:06 Room Air Current Medications Current Medications Medications (Trade) Dose Ordered Sig/Teto Route PRN Reason Start Time Stop Time Status Last Admin Dose Admin Acetaminophen (Tylenol Tab) 650 mg Q6HP PRN PO HEADACHE or DISCOMFORT 08/15/19 22:00 Al Hydrox/Mg Hydrox/Simethicone (Mylanta) 30 ml Q4HP PRN PO HEARTBURN/INDIGESTION 08/15/19 22:00 Azithromycin (Zithromax Tab) 250 mg DAILY PO 08/16/19 14:00 08/17/19 10:15 DC 08/17/19 09:48 Ciprofloxacin (Cipro) 500 mg BID@,18 PO 08/18/19 18:00 08/21/19 06:01 08/20/19 05:43 Cyclobenzaprine HCl (Flexeril) 5 mg TID PRN PO MUSCLE SPASMS 08/16/19 12:30 Fluoxetine HCl (PROzac) 60 mg DAILY PO 08/17/19 09:00 08/20/19 09:28 Home Med (Med Rec Complete!) ASDIRECTED XX 08/15/19 22:45 08/15/19 22:40 DC Ibuprofen (Advil) 400 mg Q6HP PRN PO PAIN 08/16/19 03:45 Magnesium Hydroxide (Milk Of Magnesia) 30 ml DAILYPRN PRN PO CONSTIPATION 08/15/19 22:00 Olanzapine (ZyPREXA) 5 mg Q4HP PRN PO AGITATION 08/15/19 22:00 Olanzapine (ZyPREXA) 10 mg QHS PO 08/16/19 21:00 08/19/19 22:02 Phenol (Chloraseptic [place]) 2 spray Q4HP PRN MT SORE THROAT 08/16/19 03:45 Prenat Multivit/ [place]/Iron/Folic Ac ( Vitamins) 1 tab QHS PO 08/16/19 21:00 08/19/19 22:01 Trazodone HCl (Desyrel) 50 mg QHSP PRN PO INSOMNIA 08/15/19 22:00 Vitamin D (Vitamin D) 1,000 units QHS PO 08/16/19 21:00 08/19/19 22:01 Allergies Coded Allergies: amoxicillin (Verified Allergy, Intermediate, ITCHING, SWELLING, 07/03/19) anthrax vaccine (Verified Allergy, Intermediate, HIVES, 07/03/19) ceftriaxone (Verified Allergy, Intermediate, PERIORBITAL SWELLING, 07/03/19) citric acid (Verified Allergy, Intermediate, itch, 07/03/19) tomato (Verified Allergy, Intermediate, itch, 07/03/19) ERICH RIVAS DO Aug 20, 2019 10:06
[2019-08-20 15:46] VITALS: BP 100/59
[2019-08-20] MEDS: OLANZapine 5 MG TAB PO SCH (21:43)
[2019-08-20] MEDS: VITAMIN D 1,000 INTERNATIONAL UNITS TABLET PO SCH (21:43)
[2019-08-20] MEDS: PRENATAL VITAMINS CHEWABLE TABLET PO SCH (21:43)
[2019-08-21] MEDS: CIPROFLOXACIN 500 MG TAB PO SCH (06:20)
[2019-08-21 06:37] VITALS: BP 105/52
[2019-08-21] MEDS ORDERED: TRAZ-252 PO (08:37)
[2019-08-21] MEDS ORDERED: FLUO20CA19 PO (08:37)
[2019-08-21] MEDS ORDERED: OLAN5TAB PO (08:37)
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
[2019-08-21] MEDS: FLUoxetine 20 MG CAP PO SCH (09:06)
== END 2019-08-21 14:00 | disposition home or self-care (01) | DRG 885 ==
LOC: M ED 17:22 → M ED INP 21:57 → M PSY 08-16 02:18
PROVIDERS: ADMIT Psychiatry & Neurology Psychiatry; ATTEND Psychiatry & Neurology Psychiatry
DX: F33.9 Major depressive disorder, recurrent, unspecified (principal); N39.0 Urinary tract infection, site not specified; F60.3 Borderline personality disorder; Z88.1 Allergy status to other antibiotic agents; Z88.8 Allergy status to other drugs, medicaments and biological substances; Z91.018 Allergy to other foods; Z79.899 Other long term (current) drug therapy; Z62.810 Personal history of physical and sexual abuse in childhood; Z91.5 Personal history of self-harm; R45.850 Homicidal ideations; J40 Bronchitis, not specified as acute or chronic; N92.0 Excessive and frequent menstruation with regular cycle; M62.838 Other muscle spasm; F10.10 Alcohol abuse, uncomplicated; F41.9 Anxiety disorder, unspecified

== ENCOUNTER 2019-08-23 06:00 | Emergency (ER) | payer OTHER ==
[~2019-08-23] VITALS: Ht 160 cm; Wt 58.2 kg
[~2019-08-23 06:00] MED LIST changes: +AZIT-12 PO; +CHOL100029 PO; +CYCL5TAB PO; +D31000TA PO; +FLUO20CA19 PO; +IBUP1TAB7 PO; +NORG1TAB PO; +OLAN5TAB PO; +ONDA4TAB6 PO; +PREN27TA3 PO; +PROZ40CA PO; +TRAZ-252 PO; +ZYPR2.5T2 PO
[2019-08-23] MEDS ORDERED: NAPR-837 PO (06:39)
[2019-08-23] MEDS ORDERED: METH1TAB40 PO (06:39)
[2019-08-23] MEDS ORDERED: NAPROXEN 250 MG TAB PO ONE (06:45)
[2019-08-23 10:11] VITALS: BP 133/91
== END 2019-08-23 10:16 | disposition home or self-care (01) ==
LOC: M ED 06:00
DX: M62.830 Muscle spasm of back (principal); S39.012A Strain of muscle, fascia and tendon of lower back, initial encounter; X50.0XXA Overexertion from strenuous movement or load, initial encounter; Y92.9 Unspecified place or not applicable; Y93.89 Activity, other specified; Y99.9 Unspecified external cause status; K92.9 Disease of digestive system, unspecified; Z87.440 Personal history of urinary (tract) infections; N94.6 Dysmenorrhea, unspecified; F41.9 Anxiety disorder, unspecified; F32.9 Major depressive disorder, single episode, unspecified; Z79.899 Other long term (current) drug therapy; Z88.0 Allergy status to penicillin; Z88.7 Allergy status to serum and vaccine; Z88.1 Allergy status to other antibiotic agents; Z91.018 Allergy to other foods

== ENCOUNTER 2019-10-09 11:51 | Emergency (ER) | payer OTHER ==
[~2019-10-09] VITALS: Ht 160 cm; Wt 54.1 kg
[~2019-10-09 11:51] MED LIST changes: +METH1TAB40 PO; +NAPR-837 PO; -NORG1TAB PO; +NORG1TAB4 PO
[2019-10-09 13:41] LABS: HEMATOCRIT 40.5 % (36.0-47.0); HEMOGLOBIN 12.9 g/dl (12.0-15.5); MEAN CORPUSCULAR HEMOGLOBIN 27.7 pg (27.0-33.0); MEAN CORPUSCULAR HGB CONC 31.9 g/dl (32.0-36.5); MEAN CORPUSCULAR VOLUME 86.9 fl (80.0-96.0); PLATELET COUNT, AUTOMATED 243 10^3/uL (150-450); RED BLOOD COUNT 4.66 10^6/uL (4.00-5.40)
[2019-10-09 13:58] LABS: AMPHETAMINES LEVEL URINE NEGATIVE (NEGATIVE); BARBITURATES URINE NEGATIVE (NEGATIVE); BENZODIAZEPINES URINE NEGATIVE (NEGATIVE); CANNABINOIDS URINE NEGATIVE (NEGATIVE); COCAINE METABOLITE URINE NEGATIVE (NEGATIVE); METHADONE URINE NEGATIVE (NEGATIVE); OPIATES URINE NEGATIVE (NEGATIVE); PHENCYCLIDINE URINE NEGATIVE (NEGATIVE)
[2019-10-09 14:23] LABS: HCG, SERUM QUALITATIVE NEGATIVE (NEGATIVE)
[2019-10-09 14:46] LABS: ACETAMINOPHEN LEVEL < 2.0 UG/ML (10.0-30.0); ALT/SGPT 16 U/L (12-78); BILIRUBIN,DIRECT < 0.1 MG/DL (0.0-0.2); BILIRUBIN,TOTAL 0.3 MG/DL (0.2-1.0); BLOOD UREA NITROGEN 9 MG/DL (7-18); CALCIUM LEVEL 8.9 MG/DL (8.5-10.1); CARBON DIOXIDE LEVEL 27 MEQ/L (21-32); CHLORIDE LEVEL 111 MEQ/L (98-107); CREATININE FOR GFR 0.86 MG/DL (0.55-1.30); ETHYL ALCOHOL (ETHANOL) < 0.003 % (0.000-0.010); GLOMERULAR FILTRATION RATE > 60.0 (>60); GLUCOSE, FASTING 79 MG/DL (70-100); POTASSIUM SERUM 4.1 MEQ/L (3.5-5.1); SALICYLATE LEVEL 2.2 MG/DL (5.0-30.0); SODIUM LEVEL 143 MEQ/L (136-145); TOTAL PROTEIN 7.1 GM/DL (6.4-8.2)
[2019-10-09 16:46] VITALS: BP 124/86
== END 2019-10-09 16:38 | disposition home or self-care (01) ==
LOC: M ED 11:51
DX: F32.9 Major depressive disorder, single episode, unspecified (principal); R45.851 Suicidal ideations; F17.200 Nicotine dependence, unspecified, uncomplicated; Z79.899 Other long term (current) drug therapy; Z88.0 Allergy status to penicillin; Z88.4 Allergy status to anesthetic agent; Z88.1 Allergy status to other antibiotic agents; Z91.018 Allergy to other foods
CPT/HCPCS: 80048; 80076; 80307; 84443; 84703; 85027; 99284; G0480

== ENCOUNTER 2019-10-12 20:38 | Inpatient (IN) | payer OTHER ==
[~2019-10-12] VITALS: Ht 160 cm; Wt 54.0 kg
[2019-10-12] MEDS ORDERED: MELO15TA28 PO (20:50)
[2019-10-12] MEDS ORDERED: CYCL5TAB (20:50)
[2019-10-12] MEDS ORDERED: HALOPERIDOL 5 MG/ML VIAL (J1630) IM STA (21:07)
[2019-10-12] MEDS ORDERED: diphenhydrAMINE INJ 50MG/ML VIAL (J1200) IM STA (21:07)
[2019-10-12 21:10] LABS: MEAN CORPUSCULAR HEMOGLOBIN 28.1 pg (27.0-33.0); MEAN CORPUSCULAR HGB CONC 31.8 g/dl (32.0-36.5); MEAN CORPUSCULAR VOLUME 88.4 fl (80.0-96.0); PLATELET COUNT, AUTOMATED 292 10^3/uL (150-450); RED BLOOD COUNT 4.98 10^6/uL (4.00-5.40); WHITE BLOOD COUNT 8.2 10^3/uL (4.0-10.0)
[2019-10-12 21:46] LABS: HCG, SERUM QUALITATIVE NEGATIVE (NEGATIVE)
[2019-10-12 22:00] LABS: ACETAMINOPHEN LEVEL < 2.0 UG/ML (10.0-30.0); ALBUMIN 4.1 GM/DL (3.2-5.2); ALT/SGPT 20 U/L (12-78); BILIRUBIN,DIRECT < 0.1 MG/DL (0.0-0.2); BILIRUBIN,TOTAL 0.2 MG/DL (0.2-1.0); BLOOD UREA NITROGEN 10 MG/DL (7-18); CALCIUM LEVEL 9.5 MG/DL (8.5-10.1); CARBON DIOXIDE LEVEL 16 MEQ/L (21-32); CHLORIDE LEVEL 111 MEQ/L (98-107); CREATININE FOR GFR 1.24 MG/DL (0.55-1.30); ETHYL ALCOHOL (ETHANOL) 0.076 % (0.000-0.010); GLOMERULAR FILTRATION RATE > 60.0 (>60); GLUCOSE, FASTING 74 MG/DL (70-100); POTASSIUM SERUM 4.9 MEQ/L (3.5-5.1); SALICYLATE LEVEL 2.5 MG/DL (5.0-30.0); SODIUM LEVEL 145 MEQ/L (136-145); TOTAL PROTEIN 7.6 GM/DL (6.4-8.2)
[2019-10-12 22:43] LABS: AMPHETAMINES LEVEL URINE NEGATIVE (NEGATIVE); BARBITURATES URINE NEGATIVE (NEGATIVE); BENZODIAZEPINES URINE NEGATIVE (NEGATIVE); CANNABINOIDS URINE NEGATIVE (NEGATIVE); COCAINE METABOLITE URINE NEGATIVE (NEGATIVE); METHADONE URINE NEGATIVE (NEGATIVE); OPIATES URINE NEGATIVE (NEGATIVE); PHENCYCLIDINE URINE NEGATIVE (NEGATIVE)
[2019-10-12] MEDS ORDERED: traZODone 50 MG TAB PO PRN (23:15)
[2019-10-12] MEDS ORDERED: MAALOX 30 ML SUSP *UDC PO PRN (23:15)
[2019-10-12] MEDS ORDERED: ACETAMINOPHEN TAB 650MG DOSE (2X325MG) PO PRN (23:15)
[2019-10-12] MEDS ORDERED: MOM 30ML SUSPENSION UDC PO PRN (23:15)
[2019-10-12] MEDS ORDERED: OLAN5TAB PO (23:22)
[2019-10-12] MEDS ORDERED: FLUO20CA19 PO (23:22)
[2019-10-12] MEDS ORDERED: TRAZ-252 PO (23:22)
[2019-10-12] MEDS ORDERED: FLUO40CA PO (23:22)
[2019-10-12] MEDS ORDERED: PATIENT COMMENTS (23:24)
[2019-10-13 05:40] VITALS: BP 129/74
[2019-10-13 09:22] LABS: BLOOD UREA NITROGEN 9 MG/DL (7-18); CALCIUM LEVEL 8.1 MG/DL (8.5-10.1); CARBON DIOXIDE LEVEL 24 MEQ/L (21-32); CHLORIDE LEVEL 111 MEQ/L (98-107); CREATININE FOR GFR 0.92 MG/DL (0.55-1.30); GLOMERULAR FILTRATION RATE > 60.0 (>60); GLUCOSE, FASTING 73 MG/DL (70-100); POTASSIUM SERUM 4.2 MEQ/L (3.5-5.1); SODIUM LEVEL 142 MEQ/L (136-145)
--- NOTE | 2019-10-13 09:33 | HPEPDOC ---
[facility] Medical History & Physical Date of Admission Oct 12, 2019 Date of Service: Oct 13, 2019 History and Physical CHIEF COMPLAINT: Suicidal ideation HISTORY OF PRESENT ILLNESS: Patient is a 19F with PMH Anxiety and Depression admitted for [facility] for reported depression and suicidal ideation. She stated that this has been going on for a long time, possibly weeks that had got worse. Patient states that she doesn't drink often but she drank a fair amount prior to this visit. She also reports having lower back pain from a fall several weeks prior. Pain is described over lumbar region, nonradiating, intermittent and sharp in nature without any associated neurological symptoms. She otherwise denies any other medical pro blems and states that she feels fine. Denies any chest pain, SOB, fever, chills, current suicidal ideation. PAST MEDICAL HISTORY: Refer to [facility] PAST SURGICAL HISTORY: Tonsillectomy SOCIAL HISTORY: Smokes 4 cigs/day. Reports that she doesn't drink much but was drinking prior to this admission. Denies illicit drug use. FAMILY HISTORY: Mother- HTN, Epilepsy, CVA ALLERGIES: Please see below. REVIEW OF SYSTEMS: 10 point review of system negative except as stated in [facility] HOME MEDICATIONS: Please see below. PHYSICAL EXAMINATION: General: No acute distress, Alert, somewhat lethargic Eyes: Normal sclera, EOMI, JONNY HENT: Atraumatic, neck supple Cardiovascular: Normal rate, normal rhythm. Pulmonary: Clear to auscultation b/l GI: Soft, nontender, nondistended Skin: Warm and dry Neuro: CN grossly intact. No focal deficits. Strengths equal b/l. Psych: oriented x 3 LABORATORY DATA: See below. MICROBIOLOGY: Please see below. ASSESSMENT AND PLAN: 1. Depression/Anxiety with suicidal ideation - Evaluate and treat per Psych. - No reported active SI at this time. 2. Back pain - appear to be musculoskeletal in nature. No significant tenderness on exam. - No neurological deficits. Support measures such as NSAID vs. Tylenol. 3. Metabolic acidosis with elevated anion gap - 2/2 ethyl alcohol. Elevated on admission. - repeat BMP showed resolution. Patient is stable medically at this time. Will sign off, please call back with any concerns. Vital Signs Vital Signs Date Time Temp Pulse Resp B/P (MAP) Pulse Ox O2 Delivery O2 Flow Rate FiO2 10/13/19 05:40 99.5 68 16 129/74 (92) 10/13/19 00:00 99 Room Air Laboratory Data Labs 24H Laboratory Tests 2 10/12/19 21:01: Nucleated Red Blood Cells % (auto) 0.0, Anion Gap 18H, Glomerular Filtration Rate > 60.0, Calcium Level 9.5, Total Bilirubin 0.2, Direct Bilirubin < 0.1, Aspartate Amino Transf (AST/SGOT) 16, Alanine Aminotransferase (ALT/SGPT) 20, Alkaline Phosphatase 109, Total Protein 7.6, Albumin 4.1, Albumin/Globulin Ratio 1.17, Thyroid Stimulating Hormone (TSH) 1.320, Human Chorionic Gonadotropin, Qual NEGATIVE, Salicylates Level 2.5L, Acetaminophen Level < 2.0L, Ethyl Alcohol Level 0.076H 10/12/19 22:09: Urine Opiates Screen NEGATIVE, Urine Methadone Screen NEGATIVE, Urine Barbiturates Screen NEGATIVE, Urine Phencyclidine Screen NEGATIVE, Urine Amphetamines Screen NEGATIVE, Urine Benzodiazepines Screen NEGATIVE, Urine Cocaine Metabolite Screen NEGATIVE, Urine Cannabinoids Screen NEGATIVE 10/13/19 08:45: Anion Gap 7L, Glomerular Filtration Rate > 60.0, Calcium Level 8.1L CBC/BMP Laboratory Tests 10/12/19 21:01 10/13/19 08:45 Home Medications Scheduled Cholecalciferol (Vitamin D3) (Vitamin D3) 1,000 Unit Tablet, 1,000 UNIT PO QHS Fluoxetine Hcl (Fluoxetine HCl) 20 Mg Capsule, 20 MG PO DAILY Fluoxetine Hcl (Fluoxetine HCl) 40 Mg Capsule, 40 MG PO DAILY Meloxicam (Meloxicam) 15 Mg Tablet, 15 MG PO DAILY Olanzapine (Olanzapine) 5 Mg Tablet, 5 MG PO DAILY Trazodone HCl (Trazodone HCl) 50 Mg Tablet, 50 MG PO QHS Miscellaneous Medications [Patient Comments] PATIENT SLEEPING, STAFF REQUESTS THAT I NOT WAKE HER UP RIGHT NOW Allergies Coded Allergies: amoxicillin (Verified Allergy, Intermediate, ITCHING, SWELLING, 10/12/19) anthrax vaccine (Verified Allergy, Intermediate, HIVES, 10/12/19) ceftriaxone (Verified Allergy, Intermediate, PERIORBITAL SWELLING, 10/12/19) citric acid (Verified Allergy, Intermediate, itch, 10/12/19) tomato (Verified Allergy, Intermediate, itch, 10/12/19) A-FIB/CHADSVASC A-FIB History Current/History of A-Fib/PAF?: No BOYCE,CANH T. MD Oct 13, 2019 09:33
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
[2019-10-13 17:19] VITALS: BP 138/76
[2019-10-13] MEDS: VITAMIN D 1,000 INTERNATIONAL UNITS TABLET PO SCH (20:51)
[2019-10-14 06:07] VITALS: BP 96/52
[2019-10-14] MEDS ORDERED: FLUoxetine 20 MG CAP PO SCH (09:00)
[2019-10-14] MEDS: FLUoxetine 20 MG CAP PO SCH (09:04)
[2019-10-14] MEDS: OLANZapine 5 MG TAB PO SCH (09:04)
[2019-10-14] MEDS: MELOXICAM (MOBIC) 7.5 MG TAB PO SCH (09:04)
[2019-10-14 15:41] VITALS: BP 101/55
--- NOTE | 2019-10-14 17:51 | MHIPNPDOC ---
[facility] Progress Note Progress Note DATE OF SERVICE: 10/14/19 HISTORY: As per Dr. Cheatham: "The patient a 19-year-old woman who was recently admitted to inpatient psychiatry, presents to [facility] initially intoxicated where she had become severely agitated after reportedly making suicidal statements and being brought in by police. She reports that she had otherwise been doing fine with her mood and that she although had stopped taking her medications, she otherwise demonstrated normal mood until she began drinking the night in question, becoming disinhibited and reports that she does not remember the majority of the evening until she had sobered up. She was agitated in the ER and was admitted out of an abundance of caution. When I met the patient, she was very remorseful of her actions and reported that she otherwise had been doing fine from prospective of her regular psychiatric conditions. She reports no major changes from her last admission in August other than the above-mentioned alcohol had been the primary reason for her admission." VITAL SIGNS: See below. NEW TEST RESULTS: See below CURRENT MEDICATIONS: See below. MENTAL STATUS EXAMINATION: Patient is a 19-year old female, who is alert, cooperative, withdrawn, dressed in hospital clothes. Speech: Is slow, low volume, spontaneous and fluent. Thought processes including: Linear, coherent Thought content: She has anxious/depressed thoughts. Description of associations: Intact. Description of abnormal or psychotic thoughts: Denies SI at this time, denies HI, denies TAV hallucinations, denies thought delusions, she's not responding to internal stimuli.. Judgment: Poor Insight: Limited Orientation: x 3 Recent and remote memory: Intact Attention span and concentration: Good Fund of knowledge: Adequate Mood: Sad/anxious. Affect: congruent with mood, constricted, not reactive DIAGNOSES: Unspecified depressive disorder. Alcohol use disorder, unspecified. Unspecified trauma, stress related disorder. ASSESSMENT: The patient is withdrawn, seems very depressed and at this time she denies suicidal ideation/homicidal ideation/psychosis but she adits that she was drinking alcohol and she says she doesn't know why was she doing this because she's not a drinker. She says that her grandfather a couple of weeks ago and her grandmother on . Her child lives with her mother, not with her and she says she misses her child. She has been going through a lot of unfortunate events but she never mentioned any of this when she was admitted and she is grieving and this could have contributed to her behavior and added to her depression. MANAGEMENT PLAN: As per Dr. Cheatham TIME SPENT: 20 minutes. Vital Signs Vital Signs Date Time Temp Pulse Resp B/P (MAP) Pulse Ox O2 Delivery O2 Flow Rate FiO2 10/14/19 15:41 97.9 67 16 101/55 (70) 10/14/19 06:07 Room Air 10/13/19 00:00 99 Current Medications Current Medications Medications (Trade) Dose Ordered Sig/Teto Route PRN Reason Start Time Stop Time Status Last Admin Dose Admin Acetaminophen (Tylenol Tab) 650 mg Q6HP PRN PO HEADACHE or DISCOMFORT 10/12/19 23:15 Al Hydrox/Mg Hydrox/Simethicone (Mylanta) 30 ml Q4HP PRN PO HEARTBURN/INDIGESTION 10/12/19 23:15 Diphenhydramine HCl (Benadryl) 50 mg STAT STAT IM 10/12/19 21:07 10/12/19 21:08 DC 10/12/19 21:35 Fluoxetine HCl (PROzac) 20 mg DAILY PO 10/14/19 09:00 UNV Fluoxetine HCl (PROzac) 60 mg DAILY PO 10/14/19 09:00 10/14/19 09:04 Haloperidol (Haldol) 5 mg STAT STAT IM 10/12/19 21:07 10/12/19 21:08 DC 10/12/19 21:36 Home Med (Med Rec Complete!) ASDIRECTED XX 10/12/19 23:30 10/12/19 23:26 DC Magnesium Hydroxide (Milk Of Magnesia) 30 ml DAILYPRN PRN PO CONSTIPATION 10/12/19 23:15 Meloxicam (Mobic) 15 mg DAILY PO 10/14/19 09:00 10/14/19 09:04 Olanzapine (ZyPREXA) 5 mg DAILY PO 10/14/19 09:00 10/14/19 09:04 Trazodone HCl (Desyrel) 50 mg QHSP PRN PO INSOMNIA 10/12/19 23:15 10/13/19 16:42 DC Vitamin D (Vitamin D) 1,000 units QHS PO 10/13/19 21:00 10/13/19 20:51 Allergies Coded Allergies: amoxicillin (Verified Allergy, Intermediate, ITCHING, SWELLING, 10/12/19) anthrax vaccine (Verified Allergy, Intermediate, HIVES, 10/12/19) ceftriaxone (Verified Allergy, Intermediate, PERIORBITAL SWELLING, 10/12/19) citric acid (Verified Allergy, Intermediate, itch, 10/12/19) tomato (Verified Allergy, Intermediate, itch, 10/12/19) SCARLETT AGUILAR MD Oct 14, 2019 17:37
[2019-10-14] MEDS: VITAMIN D 1,000 INTERNATIONAL UNITS TABLET PO SCH (21:51)
[2019-10-15 06:29] VITALS: BP 102/62
[2019-10-15] MEDS: OLANZapine 5 MG TAB PO SCH (08:19)
[2019-10-15] MEDS: FLUoxetine 20 MG CAP PO SCH (08:19)
[2019-10-15] MEDS: MELOXICAM (MOBIC) 7.5 MG TAB PO SCH (08:19)
--- NOTE | 2019-10-15 10:43 | MHDSPDOC ---
[facility] Discharge Summary Discharge Summary DATE OF ADMISSION: Oct 12, 2019 at 23:01 DATE OF DISCHARGE: 10/15/19 Discharge Qi Magaña MRN: N/[id number] Date of : N/A Date of Service: 10/15/2019 Diagnoses Unspecified depressive disorder. Alcohol use disorder, unspecified. Unspecified trauma, stress related disorder. History of Present Illness The patient a 19-year-old woman who was recently admitted to inpatient psychiatry, presents to [facility] initially intoxicated where she had become severely agitated after reportedly making suicidal statements and being brought in by police. She reports that she had otherwise been doing fine with her mood and that she although had stopped taking her medicati ons, she otherwise demonstrated normal mood until she began drinking the night in question, becoming disinhibited and reports that she does not remember the majority of the evening until she had sobered up. She was agitated in the ER and was admitted out of an abundance of caution. When I met the patient, she was very remorseful of her actions and reported that she otherwise had been doing fine from prospective of her regular psychiatric conditions. She reports no major changes from her last admission in August other than the above-mentioned alcohol had been the primary reason for her admission. Consultants Involved Hospitalist/PCP screening Treatment and Progress On The Unit The patient was admitted to the inpatient unit and observed. She reportedly had no agitation when she had presented. She reported that she was quite intoxicated for her normal baseline and had been lashing out in the ER. However, she was pleasant and cooperative on the unit and after 2 days of observation and restart of her home medications as she reported that she had not been taking them, she did not meet involuntary criteria for further extension of her admission. She had been friendly, amenable and cooperative with all treatment on the unit, been denying suicidal or homicidal ideation through the entirety of her stay with us. She declined further voluntary admission and was discharged in good jose maria on her home meds resumed from her previous admission. She did not appear to be significantly impaired by her mental health concerns and was cooperative with our discharge process. Discharge Assessment 19-year-old woman with a history of depression and significant alcohol use that presents after reportedly becoming intoxicated, making suicidal statements. She is discharged in good jose maria after observation reveals that she is cooperative with no suicidal or homicidal ideation. She does not meet criteria for further extension and declines a further stay. Mental Status Examination General: Well dressed with good hygiene Speech: Spontaneous and fluid Thought processes: Linear and logical MSK: Smooth and coordinated gait, no signs of tremors or involuntary orofacial movements Thought content: Future orientated Abstract reasoning, and computation: Intact Description of associations: Intact Description of abnormal or psychotic thoughts: Denies any suicidal or homicidal ideation. Denies any auditory or visual hallucinations. Does not appear to be responding to internal stimuli. Does not appear to be endorsing any bizarre or paranoid ideation. Judgment: fair Insight: fair Orientation: Alert and orientated 3 Cognition: Grossly normal Recent and remote memory: Intact Attention span and concentration: Intact Fund of knowledge: Adequate Mood: "okay" Affect: Euthymic with a full range Follow Up The social work team worked during the predischarge meeting in order to evaluate for further issues of lethality address them fully before discharge. They worked on safety planning with the patient's family members in order to ensure that the patient will have a safe and effective discharge. Time Spent The amount of time spent in the coordination of care for this patient was approximately 70 minutes. Tuesday Vital Signs/I&Os Vital Signs Date Time Temp Pulse Resp B/P (MAP) Pulse Ox O2 Delivery O2 Flow Rate FiO2 10/15/19 06:29 99.4 58 16 102/62 (75) Room Air 10/13/19 00:00 99 Medications Scheduled Cholecalciferol (Vitamin D3) (Vitamin D3) 1,000 Unit Tablet, 1,000 UNIT PO QHS for health for 7 Days, #7 Fluoxetine Hcl (Fluoxetine HCl) 20 Mg Capsule, 20 MG PO DAILY for depression for 7 Days, #7 Fluoxetine Hcl (Fluoxetine HCl) 40 Mg Capsule, 40 MG PO DAILY for mood for 7 Days, #7 Meloxicam (Meloxicam) 15 Mg Tablet, 15 MG PO DAILY for mood for 7 Days, #7 Olanzapine (Olanzapine) 5 Mg Tablet, 5 MG PO DAILY for mood for 7 Days, #7 Allergies Coded Allergies: amoxicillin (Verified Allergy, Intermediate, ITCHING, SWELLING, 10/12/19) anthrax vaccine (Verified Allergy, Intermediate, HIVES, 10/12/19) ceftriaxone (Verified Allergy, Intermediate, PERIORBITAL SWELLING, 10/12/19) citric acid (Verified Allergy, Intermediate, itch, 10/12/19) tomato (Verified Allergy, Intermediate, itch, 10/12/19) ARASELI LOPEZ DO Oct 15, 2019 10:43
[2019-10-15] MEDS ORDERED: D31000TA PO (10:49)
[2019-10-15] MEDS ORDERED: MELO15TA28 PO (10:49)
[2019-10-15] MEDS ORDERED: FLUO20CA19 PO (10:49)
[2019-10-15] MEDS ORDERED: FLUO40CA PO (10:49)
[2019-10-15] MEDS ORDERED: OLAN5TAB PO (10:49)
== END 2019-10-15 12:35 | disposition home or self-care (01) | DRG 881 ==
LOC: M ED 20:38 → M ED INP 23:01 → M PSY 10-13 00:34
PROVIDERS: ADMIT Psychiatry & Neurology Addiction Medicine; ATTEND Psychiatry & Neurology Addiction Medicine
DX: F32.9 Major depressive disorder, single episode, unspecified (principal); F43.10 Post-traumatic stress disorder, unspecified; F10.920 Alcohol use, unspecified with intoxication, uncomplicated; Z91.5 Personal history of self-harm; Z62.810 Personal history of physical and sexual abuse in childhood; Z91.14 Patient's other noncompliance with medication regimen; Z79.899 Other long term (current) drug therapy; Z88.1 Allergy status to other antibiotic agents; Z88.7 Allergy status to serum and vaccine; Z91.018 Allergy to other foods; Z88.8 Allergy status to other drugs, medicaments and biological substances; F43.21 Adjustment disorder with depressed mood

== ENCOUNTER 2019-10-17 18:15 | Emergency (ER) | payer OTHER ==
[~2019-10-17] VITALS: Ht 160 cm; Wt 54.0 kg
[~2019-10-17 18:15] MED LIST changes: +CYCL5TAB; +FLUO40CA PO; +MELO15TA28 PO; +PATIENT COMMENTS
[2019-10-17 19:53] VITALS: BP 121/65
== END 2019-10-17 19:54 | disposition home or self-care (01) ==
LOC: M ED 18:15
DX: F98.9 Unspecified behavioral and emotional disorders with onset usually occurring in childhood and adolescence (principal); Z88.0 Allergy status to penicillin; Z88.7 Allergy status to serum and vaccine; Z88.1 Allergy status to other antibiotic agents; Z91.018 Allergy to other foods

== ENCOUNTER 2019-12-27 14:51 | Emergency (ER) | payer OTHER ==
[~2019-12-27] VITALS: Ht 160 cm; Wt 57.0 kg
[2019-12-27 14:51] VITALS: BP 132/89
[~2019-12-27 14:51] MED LIST changes: -FLUO20CA19 PO; +FLUO20CA22 PO
[2019-12-27] MEDS ORDERED: NASA30TA8 (14:57)
[2019-12-27] MEDS ORDERED: MOXI400T11 (14:57)
[2019-12-27] MEDS ORDERED: DEXA4TA (14:57)
[2019-12-27] MEDS ORDERED: PROAAER10 (14:57)
[2019-12-27] MEDS ORDERED: IBUPROFEN 600 MG TAB PO ONE (18:00)
[2019-12-27 18:16] LABS: INFLUENZA A AMPLIFICATION NEGATIVE (NEGATIVE); INFLUENZA B AMPLIFICATION NEGATIVE (NEGATIVE)
[2019-12-27 19:52] LABS: HCG, SERUM QUALITATIVE NEGATIVE (NEGATIVE)
--- NOTE | 2019-12-27 21:33 | REPVR ---
PROCEDURE INFORMATION: Exam: XR Soft Tissue Neck Exam date and time: 12/27/2019 6:00 PM Age: 19 years old Clinical indication: Other: Hoarseness, left siderd neck swelling; Additional info: Hoarseness, left sided neck swelling TECHNIQUE: Imaging protocol: XR of the soft tissues of the neck. COMPARISON: No relevant prior studies available. FINDINGS: Airway: Normal. No abnormal narrowing. Soft tissues: Normal. Normal epiglottis. Bones/joints: Unremarkable. IMPRESSION: No acute findings. Electronically signed by: Ruel Thurston On 12/27/2019 21:33:36 PM
== END 2019-12-27 21:25 | disposition left against medical advice (07) ==
LOC: M ED 14:51
DX: R07.0 Pain in throat (principal); Z53.21 Procedure and treatment not carried out due to patient leaving prior to being seen by health care provider; F17.200 Nicotine dependence, unspecified, uncomplicated; Z79.899 Other long term (current) drug therapy; Z88.0 Allergy status to penicillin; Z88.7 Allergy status to serum and vaccine; Z91.018 Allergy to other foods; Z88.1 Allergy status to other antibiotic agents